=== PATIENT | male | born 1955 ===

== ENCOUNTER → 2021-12-10 | Day surgery (SDC) | payer OTHER ==
[~2021-12-10] MED LIST: ATORVASTATIN CA10 MG PO; BENICAR20 MG PO; CARAFATE1 GM PO; GLUMETZA500 MG PO; OMEPRAZOLE-BIC1 EACH PO
== END | disposition home or self-care (01) ==
LOC: ADM 12-04 11:00 → CIR.AMB 10:13
PROVIDERS: ATTEND Otolaryngology Otology & Neurotology
DX: H71.01 Cholesteatoma of attic, right ear (principal); Z88.0 Allergy status to penicillin; Z88.6 Allergy status to analgesic agent; I10 Essential (primary) hypertension; Z79.84 Long term (current) use of oral hypoglycemic drugs; E11.9 Type 2 diabetes mellitus without complications; K21.9 Gastro-esophageal reflux disease without esophagitis